=== PATIENT | male | born 1980 | race Caucasian/White ===

== ENCOUNTER 2020-12-14 19:36 | Emergency (ER) | payer SELFPAY ==
[~2020-12-14] VITALS: Ht 182.9 cm; Wt 83.9 kg
[~2020-12-14 19:36] MED LIST: AZIT250 PO; Bactrim Ds Tab1 EACH PO; CEPH500 PO; HYDACE10B PO; HYDACE5 PO; HYDGUAL120 PO
[2020-12-14 20:35] LABS: BASOPHILS ABSOLUTE AUTO 0.04 K/mm3 (0.00-0.23); BASOPHILS PERCENT AUTO 0 % (0-2); EOSINOPHILS ABSOLUTE AUTO 0.15 K/mm3 (0.00-0.68); EOSINOPHILS PERCENT AUTO 2 % (0-6); Hematocrit 45.9 % (37.0-53.0); Hemoglobin 14.8 g/dL (13.5-17.5); IMMATURE GRAN ABSOLUTE AUTO 0.02 K/mm3 (0.00-0.10); IMMATURE GRAN PERCENT AUTO 0 % (0-1); LYMPHOCYTES ABSOLUTE AUTO 2.78 K/mm3 (0.84-5.20); LYMPHOCYTES PERCENT AUTO 30 % (21-46); MONOCYTES ABSOLUTE AUTO 0.93 K/mm3 (0.16-1.47); MONOCYTES PERCENT AUTO 10 % (4-13); Mean Corpuscular HGB 29.4 pg (26.0-34.0); Mean Corpuscular HGB Conc 32.2 g/dL (31.5-36.5); Mean Corpuscular Volume 91 fL (80-100); Mean Platelet Volume 10.7 fL (9.1-12.4); NEUTROPHILS ABSOLUTE AUTO 5.27 K/mm3 (1.96-9.15); NEUTROPHILS PERCENT AUTO 57 % (41-73); Platelet Count 243 K/mm3 (150-400); RDW Coefficient Variation 14.6 % (11.7-14.2); RDW Standard Deviation 47.9 fL (35.1-46.3); Red Blood Cell Count 5.03 M/mm3 (4.30-5.90); White Blood Cell Count 9.19 K/mm3 (4.00-11.30)
[2020-12-14 20:58] LABS: Albumin, Blood 3.2 g/dL (3.4-5.0); Albumin/Globulin Ratio 0.8 (0.8-1.8); Bilirubin, Total 0.6 mg/dL (0.1-1.0); Bun/Creatinine Ratio 9.8 (12.0-20.0); Calcium, Blood 8.6 mg/dL (8.5-10.1); Creatinine, Blood 1.43 mg/dL (0.60-1.20); Globulin, Blood 3.9 g/dL (2.2-4.0); Potassium, Blood 4.1 mmol/L (3.5-5.5); Total Protein, Blood 7.1 g/dL (6.4-8.2)
[2020-12-14] MEDS ORDERED: CEPH500 PO (21:06)
== END 2020-12-14 22:25 | disposition home or self-care (01) ==
LOC: ER 19:36
PROVIDERS: Physician Assistant
DX: L03.116 Cellulitis of left lower limb (principal)
CPT/HCPCS: 36415; 80053; 83605; 85025; 99283; A9270

== ENCOUNTER 2021-07-20 19:31 | Emergency (ER) | payer OTHER ==
[~2021-07-20] VITALS: Ht 182.9 cm; Wt 83.9 kg
[2021-07-20] MEDS ORDERED: CEPH500 PO (22:13)
[2021-07-20] MEDS ORDERED: SULTRIDS PO (22:13)
== END 2021-07-20 22:25 | disposition home or self-care (01) ==
LOC: ER 19:31
DX: L03.116 Cellulitis of left lower limb (principal); F17.200 Nicotine dependence, unspecified, uncomplicated
CPT/HCPCS: 87070; 87077; 87185; 87186; 87205; 93971; 99284-25; A9270

== ENCOUNTER 2021-09-03 22:44 | Emergency (ER) | payer OTHER ==
[~2021-09-03] VITALS: Ht 182.9 cm; Wt 83.9 kg
[~2021-09-03 22:44] MED LIST changes: +SULTRIDS PO
[2021-09-03] MEDS ORDERED: Mupirocin22 GM TOP (23:14)
== END 2021-09-03 23:25 | disposition home or self-care (01) ==
LOC: ER 22:44
DX: L97.919 Non-pressure chronic ulcer of unspecified part of right lower leg with unspecified severity (principal); L97.921 Non-pressure chronic ulcer of unspecified part of left lower leg limited to breakdown of skin; Z79.899 Other long term (current) drug therapy; F17.210 Nicotine dependence, cigarettes, uncomplicated
CPT/HCPCS: 99283; A9270

== ENCOUNTER 2021-10-07 22:56 | Emergency (ER) | payer OTHER ==
[~2021-10-07] VITALS: Ht 182.9 cm; Wt 83.9 kg
[~2021-10-07 22:56] MED LIST changes: +Mupirocin22 GM TOP
[2021-10-08] MEDS ORDERED: Keflex500 MG PO (00:17)
== END 2021-10-08 00:42 | disposition home or self-care (01) ==
LOC: ER 22:56
DX: L03.116 Cellulitis of left lower limb (principal); L03.115 Cellulitis of right lower limb; F17.210 Nicotine dependence, cigarettes, uncomplicated
CPT/HCPCS: 99283

== ENCOUNTER 2021-10-22 11:50 | Emergency (ER) | payer OTHER ==
[~2021-10-22] VITALS: Ht 182.9 cm; Wt 90.7 kg
[~2021-10-22 11:50] MED LIST changes: +Keflex500 MG PO
[2021-10-22 12:32] LABS: BASOPHILS ABSOLUTE AUTO 0.02 K/mm3 (0.00-0.23); BASOPHILS PERCENT AUTO 0 % (0-2); EOSINOPHILS ABSOLUTE AUTO 0.02 K/mm3 (0.00-0.68); EOSINOPHILS PERCENT AUTO 0 % (0-6); Hematocrit 49.9 % (37.0-53.0); IMMATURE GRAN ABSOLUTE AUTO 0.02 K/mm3 (0.00-0.10); IMMATURE GRAN PERCENT AUTO 0 % (0-1); LYMPHOCYTES ABSOLUTE AUTO 1.76 K/mm3 (0.84-5.20); LYMPHOCYTES PERCENT AUTO 22 % (21-46); MONOCYTES ABSOLUTE AUTO 0.63 K/mm3 (0.16-1.47); MONOCYTES PERCENT AUTO 8 % (4-13); Mean Corpuscular HGB 30.5 pg (26.0-34.0); Mean Corpuscular HGB Conc 32.1 g/dL (31.5-36.5); Mean Corpuscular Volume 95 fL (80-100); Mean Platelet Volume 10.7 fL (9.1-12.4); NEUTROPHILS ABSOLUTE AUTO 5.62 K/mm3 (1.96-9.15); NEUTROPHILS PERCENT AUTO 70 % (41-73); Platelet Count 230 K/mm3 (150-400); RDW Coefficient Variation 14.6 % (11.7-14.2); Red Blood Cell Count 5.25 M/mm3 (4.30-5.90); White Blood Cell Count 8.07 K/mm3 (4.00-11.30)
[2021-10-22 12:54] LABS: Alanine Aminotransfer (ALT/SGP 53 U/L (12-78); Albumin, Blood 3.2 g/dL (3.4-5.0); Albumin/Globulin Ratio 0.8 (0.8-1.8); Alk Phos 160 U/L (50-136); Anion Gap 5 mmol/L (6-16); Aspartate Aminotrans (AST/SGOT 61 U/L (12-37); Blood Urea Nitrogen 18 mg/dL (8-24); Bun/Creatinine Ratio 15.9 (12.0-20.0); CO2, Blood 29 mmol/L (21-32); Calcium, Blood 8.9 mg/dL (8.5-10.1); Chloride, Blood 105 mmol/L (98-108); Creatinine, Blood 1.13 mg/dL (0.60-1.20); Globulin, Blood 4.1 g/dL (2.2-4.0); Glomerular Filtration Rate >60 (60-); Glucose, Blood 131 mg/dL (70-99); Potassium, Blood 4.5 mmol/L (3.5-5.5); Sodium, Blood 139 mmol/L (136-145); Total Protein, Blood 7.3 g/dL (6.4-8.2)
[2021-10-22] MEDS ORDERED: CEPH500 PO (14:39)
[2021-10-22] MEDS ORDERED: SULTRIDS PO (14:51)
== END 2021-10-22 15:05 | disposition home or self-care (01) ==
LOC: ER 11:50
PROVIDERS: Physician Assistant
DX: I87.2 Venous insufficiency (chronic) (peripheral) (principal); L03.116 Cellulitis of left lower limb; L03.115 Cellulitis of right lower limb; F17.210 Nicotine dependence, cigarettes, uncomplicated
CPT/HCPCS: 36415; 80053; 85025; 93971; 99284-25; A9270

== ENCOUNTER 2021-10-28 10:48 | Emergency (ER) | payer OTHER ==
[~2021-10-28] VITALS: Ht 182.9 cm; Wt 88.5 kg
[2021-10-28 11:39] LABS: BASOPHILS ABSOLUTE AUTO 0.04 K/mm3 (0.00-0.23); BASOPHILS PERCENT AUTO 1 % (0-2); EOSINOPHILS ABSOLUTE AUTO 0.04 K/mm3 (0.00-0.68); EOSINOPHILS PERCENT AUTO 1 % (0-6); Hematocrit 50.7 % (37.0-53.0); Hemoglobin 16.3 g/dL (13.5-17.5); IMMATURE GRAN ABSOLUTE AUTO 0.02 K/mm3 (0.00-0.10); IMMATURE GRAN PERCENT AUTO 0 % (0-1); LYMPHOCYTES PERCENT AUTO 27 % (21-46); MONOCYTES ABSOLUTE AUTO 0.52 K/mm3 (0.16-1.47); MONOCYTES PERCENT AUTO 7 % (4-13); Mean Corpuscular HGB Conc 32.1 g/dL (31.5-36.5); Mean Corpuscular Volume 93 fL (80-100); Mean Platelet Volume 10.8 fL (9.1-12.4); NEUTROPHILS PERCENT AUTO 64 % (41-73); Platelet Count 233 K/mm3 (150-400); RDW Coefficient Variation 14.8 % (11.7-14.2); RDW Standard Deviation 50.9 fL (35.1-46.3); Red Blood Cell Count 5.44 M/mm3 (4.30-5.90); White Blood Cell Count 7.02 K/mm3 (4.00-11.30)
[2021-10-28 12:06] LABS: Alanine Aminotransfer (ALT/SGP 51 U/L (12-78); Albumin, Blood 2.9 g/dL (3.4-5.0); Albumin/Globulin Ratio 0.7 (0.8-1.8); Alk Phos 149 U/L (50-136); Anion Gap 5 mmol/L (6-16); Aspartate Aminotrans (AST/SGOT 61 U/L (12-37); Blood Urea Nitrogen 19 mg/dL (8-24); Bun/Creatinine Ratio 15.7 (12.0-20.0); CO2, Blood 26 mmol/L (21-32); Calcium, Blood 8.9 mg/dL (8.5-10.1); Chloride, Blood 107 mmol/L (98-108); Creatinine, Blood 1.21 mg/dL (0.60-1.20); Globulin, Blood 4.3 g/dL (2.2-4.0); Glomerular Filtration Rate >60 (60-); Glucose, Blood 142 mg/dL (70-99); Potassium, Blood 4.5 mmol/L (3.5-5.5); Sodium, Blood 138 mmol/L (136-145); Total Protein, Blood 7.2 g/dL (6.4-8.2)
== END 2021-10-28 15:39 | disposition home or self-care (01) ==
LOC: ER 10:48
PROVIDERS: Emergency Medicine
DX: L27.1 Localized skin eruption due to drugs and medicaments taken internally (principal); T36.8X5A Adverse effect of other systemic antibiotics, initial encounter; F17.210 Nicotine dependence, cigarettes, uncomplicated; F15.10 Other stimulant abuse, uncomplicated; L30.9 Dermatitis, unspecified; R79.89 Other specified abnormal findings of blood chemistry
CPT/HCPCS: 36415; 80053; 83880; 85025; 93005; 93010; 96374; 99283-25; A9270; J1100

== ENCOUNTER 2021-11-06 20:20 | Inpatient (IN) | payer OTHER ==
[~2021-11-06] VITALS: Ht 182.9 cm; Wt 96.0 kg
[2021-11-06 21:30] LABS: BASOPHILS ABSOLUTE AUTO 0.03 K/mm3 (0.00-0.23); BASOPHILS PERCENT AUTO 0 % (0-2); EOSINOPHILS ABSOLUTE AUTO 0.11 K/mm3 (0.00-0.68); EOSINOPHILS PERCENT AUTO 1 % (0-6); Hemoglobin 15.4 g/dL (13.5-17.5); IMMATURE GRAN ABSOLUTE AUTO 0.03 K/mm3 (0.00-0.10); IMMATURE GRAN PERCENT AUTO 0 % (0-1); LYMPHOCYTES ABSOLUTE AUTO 1.82 K/mm3 (0.84-5.20); LYMPHOCYTES PERCENT AUTO 21 % (21-46); MONOCYTES ABSOLUTE AUTO 0.89 K/mm3 (0.16-1.47); MONOCYTES PERCENT AUTO 10 % (4-13); Mean Corpuscular HGB 30.3 pg (26.0-34.0); Mean Corpuscular HGB Conc 32.8 g/dL (31.5-36.5); Mean Corpuscular Volume 93 fL (80-100); Mean Platelet Volume 10.4 fL (9.1-12.4); NEUTROPHILS PERCENT AUTO 67 % (41-73); Platelet Count 241 K/mm3 (150-400); RDW Coefficient Variation 14.7 % (11.7-14.2); RDW Standard Deviation 50.2 fL (35.1-46.3); Red Blood Cell Count 5.08 M/mm3 (4.30-5.90); White Blood Cell Count 8.68 K/mm3 (4.00-11.30)
[2021-11-06 21:49] LABS: Alanine Aminotransfer (ALT/SGP 50 U/L (12-78); Albumin, Blood 2.9 g/dL (3.4-5.0); Albumin/Globulin Ratio 0.7 (0.8-1.8); Alk Phos 163 U/L (50-136); Anion Gap 6 mmol/L (6-16); Aspartate Aminotrans (AST/SGOT 55 U/L (12-37); Bilirubin, Total 0.7 mg/dL (0.1-1.0); Blood Urea Nitrogen 20 mg/dL (8-24); Bun/Creatinine Ratio 17.7 (12.0-20.0); CO2, Blood 24 mmol/L (21-32); Calcium, Blood 8.8 mg/dL (8.5-10.1); Chloride, Blood 109 mmol/L (98-108); Creatinine, Blood 1.13 mg/dL (0.60-1.20); Globulin, Blood 3.9 g/dL (2.2-4.0); Glomerular Filtration Rate >60 (60-); Glucose, Blood 98 mg/dL (70-99); Potassium, Blood 4.7 mmol/L (3.5-5.5); Sodium, Blood 139 mmol/L (136-145); Total Protein, Blood 6.8 g/dL (6.4-8.2)
--- NOTE | 2021-11-07 03:50 | NUR ---
Assumed care of pt at 0211 as an ER admit. A/Ox4, very cantankerous and demanding. Pt was NPO and states "If I don't get water I'm going to get the fuck out of here right now". Educated patient for the reasoning. Patient persisted and physician contacted and diet changed to cardiac. BLE redness from toes to about 4inches above the knee. Scattered scabs/open wounds t/o with the worse of it on dorsum of L calf. Patient reports 10/10 pain, but with no movement is able to fall asleep. Patient is diuresing well, and using urinal at bedside. Maintaining 90-93% on 2L NC, without it he desats into mid 80's. LS clear on top and crackles at bases. SBP 150's, DBP 110's. Afebrile. No cp/pressure. Wounds cleaned with wound silver cleaner and covered with nonadherent and kerlix as patient couldnt put his legs down as it hurt from the open wounds. Patients face has diffuse redness with purple/black at the nose and extending onto part of the cheeks. Purple/black also noted at ears, toes, and fingertips. Will update as changes occur Patient is now sleeping and instructed to use call light.
[2021-11-07 05:31] LABS: BASOPHILS ABSOLUTE AUTO 0.04 K/mm3 (0.00-0.23); BASOPHILS PERCENT AUTO 0 % (0-2); EOSINOPHILS PERCENT AUTO 1 % (0-6); Hematocrit 46.5 % (37.0-53.0); Hemoglobin 15.3 g/dL (13.5-17.5); IMMATURE GRAN ABSOLUTE AUTO 0.04 K/mm3 (0.00-0.10); IMMATURE GRAN PERCENT AUTO 0 % (0-1); LYMPHOCYTES PERCENT AUTO 15 % (21-46); MONOCYTES ABSOLUTE AUTO 1.06 K/mm3 (0.16-1.47); MONOCYTES PERCENT AUTO 10 % (4-13); Mean Corpuscular HGB 30.7 pg (26.0-34.0); Mean Corpuscular HGB Conc 32.9 g/dL (31.5-36.5); Mean Corpuscular Volume 93 fL (80-100); Mean Platelet Volume 10.8 fL (9.1-12.4); NEUTROPHILS PERCENT AUTO 73 % (41-73); Platelet Count 229 K/mm3 (150-400); RDW Coefficient Variation 14.7 % (11.7-14.2); RDW Standard Deviation 50.6 fL (35.1-46.3); Red Blood Cell Count 4.99 M/mm3 (4.30-5.90); White Blood Cell Count 10.24 K/mm3 (4.00-11.30)
[2021-11-07 06:10] LABS: Alanine Aminotransfer (ALT/SGP 52 U/L (12-78); Albumin, Blood 3.2 g/dL (3.4-5.0); Albumin/Globulin Ratio 0.8 (0.8-1.8); Alk Phos 159 U/L (50-136); Anion Gap 5 mmol/L (6-16); Aspartate Aminotrans (AST/SGOT 60 U/L (12-37); Bilirubin, Total 0.9 mg/dL (0.1-1.0); Blood Urea Nitrogen 19 mg/dL (8-24); Bun/Creatinine Ratio 16.4 (12.0-20.0); CO2, Blood 28 mmol/L (21-32); Calcium, Blood 8.9 mg/dL (8.5-10.1); Chloride, Blood 104 mmol/L (98-108); Creatinine, Blood 1.16 mg/dL (0.60-1.20); Globulin, Blood 4.1 g/dL (2.2-4.0); Glomerular Filtration Rate >60 (60-); Glucose, Blood 109 mg/dL (70-99); Potassium, Blood 4.5 mmol/L (3.5-5.5); Sodium, Blood 137 mmol/L (136-145); Total Protein, Blood 7.3 g/dL (6.4-8.2)
[2021-11-07 06:43] LABS: Creatine Kinase MB 15.8 ng/mL (0.0-3.6); Creatine Kinase MB Index 3.6 (0.0-4.0)
[2021-11-07 10:01] LABS: Source, Urine Clean Catch
[2021-11-07 10:05] LABS: Appearance, Urine Clear (Clear); Bilirubin, Urine Neg (Neg); Blood, Urine Neg (Neg); Color, Urine Yellow (P-Yellow); Glucose Qualitative, Urine Neg (Neg); Ketones, Urine Neg (Neg); Leukocyte Esterase, Urine Neg (Neg); Nitrite, Urine Neg (Neg); Protein, Urine Neg (Neg); Specific Gravity, Urine 1.015 (1.003-1.022); Urobilinogen, Urine NORM (Normal)
[2021-11-07 10:17] LABS: U Amphetamine Screen DETECTED; U Barbituate Screen Not Detected; U Benzodiazapine Screen Not Detected; U Buprenorphine Screen Not Detected; U Cannabinoids Screen DETECTED; U Cocaine Screen Not Detected; U Methadone Screen Not Detected; U Methamphetamine Screen DETECTED; U Opiates Screen Not Detected; U Oxycodone Screen Not Detected; U Phencyclidine Screen Not Detected; U Propoxyphene Screen Not Detected
--- NOTE | 2021-11-07 12:08 | NUR ---
PT BECAME AGITATED CURSING AND SCREAMING AT STAFF REFUSING MEDCIATIONS, PT PARANOID WITH DELUSIONS THAT PEOPLE ARE TELLING HIM THAT HE CAN GO HOME WITH ORAL MEDICATIONS, DR KAISER DID NOT TELL PT THAT HE COULD BE DISCHARGED WITH ORAL MEDCATIONS. PT'S FATHER ARRIVES TO ROOM AND IS ALSO VERBALLY AGGRESSIVE WITH STAFF, PT'S MOTHER THEN ARRIVES TO ROOM AND PT'S BEHAVIOR CONTINUES TO ESCILATE. PT DEMANDING TO LEAVE AMA, DRY CLEANING TEACHER TO ROOM PT AND BOTH PARENTS BECAME VERBALLY AGGRESSIVE WITH CHARGE NURSE, ADDITIONAL STAFF TO ROOM WHEN PT'S FATHER BEGAN LASHING OUT AT OTHER STAFF THROWING HANDS AT STAFF, SECURITY IS CALLED. FATHER ATTEMPTS TO DIVERT SECURITY FROM THE ROOM. PT SIGNED OUT AMA WITH DRY CLEANING TEACHER KING, RAUDEL REMOVED AND DRESSED. FAMILY AT DESK REQUESTING MEDICATIONS, FAMILY IS EDUCATED BY YARN TEXTURING MACHINE OPERATOR ABOUT OUTPT OPTIONS AFTER LEAVING AMA.
== END 2021-11-07 11:49 | disposition left against medical advice (07) | DRG 872 ==
LOC: ER 20:20 → PCU 11-07 00:35
PROVIDERS: Physician Assistant; ADMIT Internal Medicine
DX: A41.9 Sepsis, unspecified organism (principal); L03.115 Cellulitis of right lower limb; L03.116 Cellulitis of left lower limb; F15.10 Other stimulant abuse, uncomplicated; F17.210 Nicotine dependence, cigarettes, uncomplicated; Z88.2 Allergy status to sulfonamides
CPT/HCPCS: 36415; 71045; 71260; 73701; 80053; 81003; 82550; 82553; 83605; 83880; 84484; 85025; 85651; 86140; 87040; 93005; 93010; 93306; 96365; 96367; 96375; 99285-25; J0295; J0692; J1650; J1940; J3370; J7050; J7060; Q9967

== ENCOUNTER 2021-12-10 08:24 | Day surgery (SDC) | payer OTHER | END 2021-12-10 22:45 | disposition home or self-care (01) | LOC: WOUND 08:24 | DX: L97.822 Non-pressure chronic ulcer of other part of left lower leg with fat layer exposed (principal); L97.812 Non-pressure chronic ulcer of other part of right lower leg with fat layer exposed; I87.2 Venous insufficiency (chronic) (peripheral); I42.7 Cardiomyopathy due to drug and external agent; T43.62 Poisoning by, adverse effect of and underdosing of amphetamines; L03.116 Cellulitis of left lower limb; I73.9 Peripheral vascular disease, unspecified; I13.0 Hypertensive heart and chronic kidney disease with heart failure and stage 1 through stage 4 chronic kidney disease, or unspecified chronic kidney disease; N18.2 Chronic kidney disease, stage 2 (mild); I50.9 Heart failure, unspecified; Z88.2 Allergy status to sulfonamides | CPT/HCPCS: 99406; G0463 ==

== ENCOUNTER 2021-12-17 02:05 | Day surgery (SDC) | payer OTHER | END 2021-12-17 23:06 | disposition home or self-care (01) | LOC: WOUND 02:05 | DX: L97.822 Non-pressure chronic ulcer of other part of left lower leg with fat layer exposed (principal); L97.211 Non-pressure chronic ulcer of right calf limited to breakdown of skin; L03.116 Cellulitis of left lower limb; I87.2 Venous insufficiency (chronic) (peripheral); I73.9 Peripheral vascular disease, unspecified; I42.7 Cardiomyopathy due to drug and external agent; F17.210 Nicotine dependence, cigarettes, uncomplicated | CPT/HCPCS: 99406; G0463 ==

== ENCOUNTER 2021-12-24 01:04 | Day surgery (SDC) | payer OTHER | END 2021-12-24 23:19 | disposition home or self-care (01) | LOC: WOUND 01:04 | DX: L97.822 Non-pressure chronic ulcer of other part of left lower leg with fat layer exposed (principal); L97.211 Non-pressure chronic ulcer of right calf limited to breakdown of skin; I87.2 Venous insufficiency (chronic) (peripheral); L03.116 Cellulitis of left lower limb; F17.210 Nicotine dependence, cigarettes, uncomplicated; I42.9 Cardiomyopathy, unspecified; R77.0 Abnormality of albumin; I42.7 Cardiomyopathy due to drug and external agent | CPT/HCPCS: A9270; G0463 ==

== ENCOUNTER 2022-01-19 18:26 | Emergency (ER) | payer OTHER ==
[~2022-01-19] VITALS: Ht 182.9 cm; Wt 81.7 kg
== END 2022-01-19 20:57 | disposition home or self-care (01) ==
LOC: ER 18:26
DX: M79.89 Other specified soft tissue disorders (principal); L53.9 Erythematous condition, unspecified; M79.605 Pain in left leg; G89.29 Other chronic pain; F17.210 Nicotine dependence, cigarettes, uncomplicated; Z88.1 Allergy status to other antibiotic agents; Z88.2 Allergy status to sulfonamides
CPT/HCPCS: J1885

== ENCOUNTER 2023-04-30 04:45 | Emergency (ER) | payer OTHER ==
[~2023-04-30] VITALS: Ht 182.9 cm; Wt 81.7 kg
[2023-04-30] MEDS ORDERED: ACET500 PO (05:51)
[2023-04-30] MEDS ORDERED: Cleocin HCl150 MG PO (05:51)
[2023-04-30] MEDS ORDERED: Ibuprofen600 MG PO (05:51)
[2023-04-30 06:18] VITALS: BP 118/86
== END 2023-04-30 06:20 | disposition home or self-care (01) ==
LOC: ER 04:45
DX: K04.7 Periapical abscess without sinus (principal); E86.0 Dehydration; F15.90 Other stimulant use, unspecified, uncomplicated; F17.210 Nicotine dependence, cigarettes, uncomplicated; K03.81 Cracked tooth
CPT/HCPCS: 96374; 96375; 99282-25; J1885; J7030

== ENCOUNTER 2023-11-20 17:22 | Emergency (ER) | payer OTHER ==
[~2023-11-20] VITALS: Ht 182.9 cm; Wt 79.4 kg
[~2023-11-20 17:22] MED LIST changes: +ACET500 PO; +BLOOD THINNER; +Cleocin HCl150 MG PO; +DOXY100 PO; +ENTRESTO 24 MG1 EACH; +Ibuprofen600 MG PO; +SOAANZ20 M3 PO; +compression stocking
[2023-11-20] MEDS ORDERED: NS 1,000 ML IV SCH (17:35)
[2023-11-20 18:16] LABS: Hematocrit 38.9 % (37.0-53.0); Mean Corpuscular HGB 29.7 pg (26.0-34.0); Mean Corpuscular HGB Conc 33.4 g/dL (31.5-36.5); Mean Corpuscular Volume 89 fL (80-100); Platelet Count 75 K/mm3 (150-400); RDW Coefficient Variation 18.7 % (11.7-14.2); RDW Standard Deviation 59.2 fL (35.1-46.3); Red Blood Cell Count 4.37 M/mm3 (4.30-5.90); White Blood Cell Count 6.02 K/mm3 (4.00-11.30)
[2023-11-20 18:29] LABS: Albumin, Blood 3.4 g/dL (3.4-5.0); Albumin/Globulin Ratio 0.6 (0.8-1.8); Bilirubin, Total 1.2 mg/dL (0.1-1.0); Calcium, Blood 9.8 mg/dL (8.5-10.1); Creatinine, Blood 1.62 mg/dL (0.60-1.20); Globulin, Blood 5.5 g/dL (2.2-4.0); Potassium, Blood 5.3 mmol/L (3.5-5.5); Total Protein, Blood 8.9 g/dL (6.4-8.2)
[2023-11-20 18:48] LABS: BASOPHILS PERCENT MAN 0 % (0-2); EOSINOPHILS PERCENT MAN 0 % (0-6); LYMPHOCYTES PERCENT MAN 30 % (21-46); MONOCYTES ABSOLUTE MAN 0.18 K/mm3 (0.16-1.47); MONOCYTES PERCENT MAN 3 % (4-13); NEUTROPHILS ABSOLUTE MAN 4.03 K/mm3 (1.96-9.15); SEG NEUTROPHILS PERCENT MAN 67 % (41-73); TOTAL CELLS COUNTED 100
[2023-11-20 20:02] LABS: Source, Urine Clean Catch
[2023-11-20 20:06] LABS: Appearance, Urine Clear (Clear); Bilirubin, Urine Neg (Neg); Blood, Urine Neg (Neg); Color, Urine Yellow (P-Yellow); Glucose Qualitative, Urine Neg (Neg); Ketones, Urine Neg (Neg); Leukocyte Esterase, Urine 1+ (Neg); Nitrite, Urine Neg (Neg); Protein, Urine Neg (Neg); Specific Gravity, Urine 1.015 (1.003-1.022); Urobilinogen, Urine NORM (Normal)
[2023-11-20 20:41] LABS: Bacteria Few /hpf; Red Blood Cells, Urine 0-2 /hpf (0-2); Squamous Epithelial Cells Few /hpf (Few); White Blood Cells, Urine 0-2 /hpf (0-5)
[2023-11-20 21:15] VITALS: BP 86/75
== END 2023-11-20 22:12 | disposition home or self-care (01) ==
LOC: ER 17:22
PROVIDERS: Emergency Medicine; Physician Assistant
DX: R74.02 Elevation of levels of lactic acid dehydrogenase [LDH] (principal); I42.9 Cardiomyopathy, unspecified; Z88.2 Allergy status to sulfonamides; Z88.1 Allergy status to other antibiotic agents; Z79.899 Other long term (current) drug therapy; F17.210 Nicotine dependence, cigarettes, uncomplicated
CPT/HCPCS: 36415; 71046; 80053; 81001; 83605; 83880; 84443; 84484; 85025; 87086; 99283-25; J7030

== ENCOUNTER → 2024-06-23 | Outpatient (CLI) | payer OTHER | LOC: LAB SHORT 12:35 → LAB 12:35 | DX: S81.802A Unspecified open wound, left lower leg, initial encounter (principal) | CPT/HCPCS: 87070; 87075; 87077; 87147; 87186; 87205 ==

== ENCOUNTER 2024-09-03 11:26 | Inpatient (IN) | payer OTHER ==
[~2024-09-03] VITALS: Ht 182.9 cm; Wt 74.7 kg
[2024-09-03] VITALS (16 sets, daily range): BP systolic 75–104; BP diastolic 56–71
[2024-09-03] MEDS ORDERED: Magnesium Sulf 2 GM/Water 50ML 50 ML IV ONE (11:45)
[2024-09-03 12:16] LABS: Hematocrit 38.7 % (37.0-53.0); Hemoglobin 11.9 g/dL (13.5-17.5); Mean Corpuscular HGB Conc 30.7 g/dL (31.5-36.5); Mean Corpuscular Volume 78 fL (80-100); NRBC ABSOLUTE 0.11 K/mm3 (0.00-0.02); NRBC Auto 0.2 /100 WBC (0.0-0.2); Platelet Count 295 K/mm3 (150-400); RDW Coefficient Variation 23.1 % (11.7-14.2); RDW Standard Deviation 63.6 fL (35.1-46.3); Red Blood Cell Count 4.96 M/mm3 (4.30-5.90); White Blood Cell Count 47.27 K/mm3 (4.00-11.30)
[2024-09-03] MEDS ORDERED: XARELTO20 MG PO (12:23)
[2024-09-03 12:32] LABS: BAND PERCENT MAN 26 % (0-8); BASOPHILS PERCENT MAN 0 % (0-2); EOSINOPHILS PERCENT MAN 0 % (0-6); LYMPHOCYTES ABSOLUTE MAN 0.94 K/mm3 (0.84-5.20); LYMPHOCYTES PERCENT MAN 2 % (21-46); METAMYELOCYTE ABSOLUTE MAN 0.47 K/mm3 (0.00-0.00); METAMYELOCYTE PERCENT MAN 1 % (0-0); MONOCYTES ABSOLUTE MAN 0.47 K/mm3 (0.16-1.47); MONOCYTES PERCENT MAN 1 % (4-13); NEUTROPHILS ABSOLUTE MAN 45.37 K/mm3 (1.96-9.15); SEG NEUTROPHILS PERCENT MAN 70 % (41-73); TOTAL CELLS COUNTED 100
[2024-09-03 12:47] LABS: Albumin, Blood 2.4 g/dL (3.4-5.0); Albumin/Globulin Ratio 0.4 (0.8-1.8); Bun/Creatinine Ratio 20.6 (12.0-20.0); Calcium, Blood 8.9 mg/dL (8.5-10.1); Creatinine, Blood 2.38 mg/dL (0.60-1.20); Globulin, Blood 5.4 g/dL (2.2-4.0); Potassium, Blood 6.4 mmol/L (3.5-5.5); Total Protein, Blood 7.8 g/dL (6.4-8.2)
[2024-09-03] MEDS ORDERED: Ampicillin Sod/Sulbactam Sod 3 GM in NS 100 ML IV ONE (12:55)
[2024-09-03] MEDS ORDERED: Dextrose 50% 50 ML Syringe IV ONE (12:55)
[2024-09-03] MEDS ORDERED: NS 1,000 ML IV SCH (12:55)
[2024-09-03] MEDS ORDERED: Insulin Regular 100 Unit/ML 1ML Dose IV ONE (12:55)
[2024-09-03] MEDS ORDERED: Dextrose 50% 50 ML Vial IV ONE (13:00)
[2024-09-03] MEDS ORDERED: FLU VACC TS2024-25(6MOS UP)/PF 45 MCG/0.5 ML SYRINGE IM ONE (14:10)
[2024-09-03] MEDS ORDERED: CALCIUM GLUC IN NACL, ISO-OSM 100 ML IV ONE (14:10)
[2024-09-03 14:22] LABS: Source, Urine Clean Catch
[2024-09-03 14:25] LABS: Appearance, Urine Hazy (Clear); Blood, Urine 4+ (Neg); Color, Urine Amber (P-Yellow); Glucose Qualitative, Urine Neg (Neg); Ketones, Urine Neg (Neg); Leukocyte Esterase, Urine 3+ (Neg); Nitrite, Urine Neg (Neg); Protein, Urine 2+ (Neg); Urobilinogen, Urine 1+ (Normal)
[2024-09-03 14:31] LABS: Bilirubin, Urine 1+ (Neg)
[2024-09-03 14:33] LABS: Spermatozoa Few /hpf
[2024-09-03 14:34] LABS: Bacteria Many /hpf; Squamous Epithelial Cells Few /hpf (Few); Transitional Epithelial Cells Rare /hpf (0-Rare)
[2024-09-03 14:38] LABS: U Amphetamine Screen DETECTED; U Barbituate Screen Not Detected; U Benzodiazapine Screen Not Detected; U Buprenorphine Screen Not Detected; U Cannabinoids Screen DETECTED; U Cocaine Screen Not Detected; U Methadone Screen DETECTED; U Methamphetamine Screen DETECTED; U Opiates Screen Not Detected; U Oxycodone Screen DETECTED; U Phencyclidine Screen Not Detected
[2024-09-03 14:44] LABS: PCO2 Arterial 26.7 mmHg (35-45); PO2 Arterial 74.9 mmHg (80-100); pH Blood Arterial 7.44 (7.35-7.45)
[2024-09-03] MEDS ORDERED: Vancomycin HCL 1,750 MG in NS 500 ML IV ONE (14:50)
[2024-09-03 16:41] LABS: International Normalized Ratio 2.3; Prothrombin Time Results 23.1 Sec (9.7-11.5)
[2024-09-03 16:43] LABS: Anti-Xa UFH, PHA Monitoring 1.17 IU/mL
[2024-09-03 17:08] LABS: Bun/Creatinine Ratio 23.8 (12.0-20.0); Calcium, Blood 11.9 mg/dL (8.5-10.1); Creatinine, Blood 1.93 mg/dL (0.60-1.20)
[2024-09-03] MEDS ORDERED: Piperacillin/Tazobactam Sod 3.375 GM in NS 100 ML IV SCH (18:00)
--- NOTE | 2024-09-03 18:33 | NUR ---
THIS RN ASSUMED CARE OF PT AT 1730. PT WAS ALERT AND ORIENTED X3, PT CONFUSED ABOUT THE DATE. PT WAS REALLY WANTING TO DRINK WATER, THIS RN EDUCATED PT ON FLUID RESTRICTION DUE TO ENLARGED HEART AND WANTED TO KEEP FLUIDS TO A MINIMUM. PT HEART RATE IS IN THE 110s AND BLOOD PRESSURE IS 81/71 MAP OF 76, PT DENIES CHEST PAIN. PT IS ON NC 4L SATTING >95% AND PT DENIES SHORTNESS OF BREATH, PT CLEAR/DIMINISHED. PT HAS VERY MOTTLED/PURPLE SKIN COLOR ON BLE AND BUE. PULSES WERE OBTAINED IN THE UPPER EXTREMITIED VIA DOPPLER AND THE LOWER RIGHT PEDAL PULSE WAS ALSO OBTAINED VIA DOPPLER. THIS RN, SANDEEP LOVELL RN AND TATY RN WERE NOT ABLE TO GET PEDAL PULSE IN LEFT LOWER EXTREMITIY. WAS NOTIFIED AND ORDERED A VENOUS DOPPLER ULTRASOUND OF BLE. PROVIDER SAID TO KEEP PT COMFORTBALE THROUGHOUT THE NIGHT, LIMIT FLUIDS MUCH POSSIBLE DUE TO CHF EXACERBATION. NO OTHER INTERVENTIONS AT THIS TIME. PLAN OF CARE CONTINUED.
[2024-09-04] VITALS (82 sets, daily range): BP systolic 66–112; BP diastolic 43–95
[2024-09-04] MEDS ORDERED: Vancomycin HCL 750 MG in NS 250 ML IV SCH (03:00)
[2024-09-04 03:41] LABS: Hematocrit 35.3 % (37.0-53.0); Hemoglobin 11.1 g/dL (13.5-17.5); Mean Corpuscular HGB Conc 31.4 g/dL (31.5-36.5); Mean Corpuscular Volume 76 fL (80-100); Mean Platelet Volume 10.2 fL (9.1-12.4); Platelet Count 275 K/mm3 (150-400); RDW Coefficient Variation 22.5 % (11.7-14.2); RDW Standard Deviation 59.7 fL (35.1-46.3); Red Blood Cell Count 4.62 M/mm3 (4.30-5.90); White Blood Cell Count 41.63 K/mm3 (4.00-11.30)
[2024-09-04 04:07] LABS: BAND PERCENT MAN 37 % (0-8); BASOPHILS PERCENT MAN 0 % (0-2); EOSINOPHILS PERCENT MAN 0 % (0-6); LYMPHOCYTES ABSOLUTE MAN 1.24 K/mm3 (0.84-5.20); LYMPHOCYTES PERCENT MAN 3 % (21-46); METAMYELOCYTE ABSOLUTE MAN 0.41 K/mm3 (0.00-0.00); METAMYELOCYTE PERCENT MAN 1 % (0-0); MONOCYTES ABSOLUTE MAN 0.41 K/mm3 (0.16-1.47); MONOCYTES PERCENT MAN 1 % (4-13); NEUTROPHILS ABSOLUTE MAN 39.54 K/mm3 (1.96-9.15); SEG NEUTROPHILS PERCENT MAN 58 % (41-73); TOTAL CELLS COUNTED 100
[2024-09-04 04:40] LABS: Albumin, Blood 1.9 g/dL (3.4-5.0); Albumin/Globulin Ratio 0.5 (0.8-1.8); Bilirubin, Total 1.7 mg/dL (0.1-1.0); Bun/Creatinine Ratio 26.2 (12.0-20.0); Creatinine, Blood 1.68 mg/dL (0.60-1.20); Globulin, Blood 4.2 g/dL (2.2-4.0); Total Protein, Blood 6.1 g/dL (6.4-8.2)
[2024-09-04 04:42] LABS: Calcium, Blood 8.4 mg/dL (8.5-10.1)
[2024-09-04] MEDS ORDERED: Heparin Sodium 5000 Units/ML 1ML MDV SC SCH (09:00)
[2024-09-04] MEDS ORDERED: Midodrine 5 MG Tab PO SCH (09:00)
--- NOTE | 2024-09-04 09:00 | NUR ---
ASSUMED CARE OF PATIENT PT ALERT AND ORIENTED TO SELF, PLACE, SITATION, AND YEAR. UNABLE TO STATE MONTH. PATIENT STATING HE WANTS TO LEAVE HOSPITAL, THIS RN AND DR. ROLDAN EDUCATED PATIENT ON SEVERITY OF DISEASE/RISKS OF LEAVING. PATIENT STATED ON PERIPHREAL LEVOPHED FOR SBP OF HIGH 70'S AND MAP OF MID 50'S. INFUSING THOUGH RIGHT UPPER ARM IV. SINUS TACH 100-110'S. DOPPLERABLE PULSES IN BUE AND RIGHT PEDAL PULSE. STILL UNABLE TO OBTAIN LEFT PEDAL PULSE VIA DOPPLER. PATIENT PLACED ON ROOM AIR FROM 2LNC, WITH O2 SATS > 98%. NO SOB. CLEAR/DIMINISHED LUNG SOUNDS. HAD 1 LOOSE BM. NO ACUTE COMPLAINTS OF PAIN AT THIS TIME.
[2024-09-04] MEDS ORDERED: Piperacillin/Tazobactam Sod 3.375 GM in NS 100 ML IV SCH (16:00)
[2024-09-04] MEDS ORDERED: Rivaroxaban 10 MG Tab PO SCH (18:00)
[2024-09-04 18:43] LABS: Vancomycin, Trough 14.8 ug/mL (5.0-10.0)
[2024-09-05] VITALS (78 sets, daily range): BP systolic 62–145; BP diastolic 27–131
[2024-09-05 00:02] LABS: Albumin, Blood 2.1 g/dL (3.4-5.0); Albumin/Globulin Ratio 0.5 (0.8-1.8); Bilirubin, Total 1.7 mg/dL (0.1-1.0); Bun/Creatinine Ratio 27.8 (12.0-20.0); Calcium, Blood 8.3 mg/dL (8.5-10.1); Creatinine, Blood 1.26 mg/dL (0.60-1.20); Globulin, Blood 4.4 g/dL (2.2-4.0); Magnesium, Blood 2.4 mg/dL (1.6-2.4); Phosphorus, Blood 2.5 mg/dL (2.5-4.9); Potassium, Blood 4.3 mmol/L (3.5-5.5); Total Protein, Blood 6.5 g/dL (6.4-8.2)
[2024-09-05 04:07] LABS: Hematocrit 33.4 % (37.0-53.0); Hemoglobin 10.5 g/dL (13.5-17.5); Mean Corpuscular HGB 23.7 pg (26.0-34.0); Mean Corpuscular HGB Conc 31.4 g/dL (31.5-36.5); Mean Corpuscular Volume 75 fL (80-100); Mean Platelet Volume 9.8 fL (9.1-12.4); NRBC ABSOLUTE 0.09 K/mm3 (0.00-0.02); NRBC Auto 0.5 /100 WBC (0.0-0.2); Platelet Count 202 K/mm3 (150-400); RDW Coefficient Variation 22.1 % (11.7-14.2); RDW Standard Deviation 59.3 fL (35.1-46.3); Red Blood Cell Count 4.43 M/mm3 (4.30-5.90); White Blood Cell Count 17.55 K/mm3 (4.00-11.30)
[2024-09-05 04:25] LABS: International Normalized Ratio 1.68; Prothrombin Time Results 17.3 Sec (9.7-11.5)
[2024-09-05 04:30] LABS: Albumin, Blood 2.1 g/dL (3.4-5.0); Albumin/Globulin Ratio 0.5 (0.8-1.8); Bilirubin, Total 1.9 mg/dL (0.1-1.0); Bun/Creatinine Ratio 27.5 (12.0-20.0); Calcium, Blood 8.2 mg/dL (8.5-10.1); Creatinine, Blood 1.2 mg/dL (0.60-1.20); Globulin, Blood 4.4 g/dL (2.2-4.0); Potassium, Blood 4.2 mmol/L (3.5-5.5); Total Protein, Blood 6.5 g/dL (6.4-8.2)
[2024-09-05 04:53] LABS: BAND PERCENT MAN 25 % (0-8); BASOPHILS PERCENT MAN 0 % (0-2); EOSINOPHILS PERCENT MAN 0 % (0-6); LYMPHOCYTES % ATYPICAL MANUAL 1 % (0-0); LYMPHOCYTES ABSOLUTE MAN 1.05 K/mm3 (0.84-5.20); LYMPHOCYTES PERCENT MAN 5 % (21-46); METAMYELOCYTE ABSOLUTE MAN 0.17 K/mm3 (0.00-0.00); METAMYELOCYTE PERCENT MAN 1 % (0-0); MONOCYTES ABSOLUTE MAN 0.35 K/mm3 (0.16-1.47); MONOCYTES PERCENT MAN 2 % (4-13); NEUTROPHILS ABSOLUTE MAN 15.97 K/mm3 (1.96-9.15); SEG NEUTROPHILS PERCENT MAN 66 % (41-73); TOTAL CELLS COUNTED 100
--- NOTE | 2024-09-05 05:25 | NUR ---
SHIFT SUMMARY A/OX4, RESPONDS AND CALLS APPROPRIATLY. 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 PT HAD 25MIN EPISODE OF SUSTAINED SVT. ATTEMPTED TO GET PT TO VAGAL BUT WAS UNSUCCESSFUL. PT WAS ASYMPTOMATIC. ON LEVO AT 4MCG/MIN R/T MAP GOAL OF 65. ON ROOM AIR, SATS >92%. MULTILE LOOSE STOOLS THIS SHIFT, SAMPLE SENT TO LAB FOR TESTING. TOLERATING PO INTAKE W/O N/V. TMAX 101.3, REMOVED BLANKETS AND PROVIDED COOL CLOTH, WHICH WAS SUCCESSFUL. CALL LIGHT IN REACH.
[2024-09-05 05:38] LABS: Campylobacter Sp Not Detected (NOT DETECT); Cryptosporidium Not Detected (NOT DETECT); Cyclospora Cayetanensis Not Detected (NOT DETECT); E. Coli O157 Not Detected (NOT DETECT); Entamoeba Histolytica Not Detected (NOT DETECT); Enteroaggregative E. coli-EAEC Not Detected (NOT DETECT); Enteropathogenic E. coli-EPEC Not Detected (NOT DETECT); Enterotoxigenic E. coli-ETEC Not Detected (NOT DETECT); Giardia Lamblia Not Detected (NOT DETECT); Plesiomonas Shigelloides Not Detected (NOT DETECT); Salmonella Sp Not Detected (NOT DETECT); Shiga Toxin-prod E. coli-STEC Not Detected (NOT DETECT); Shigella/Enteroin E. coli-EIEC Not Detected (NOT DETECT); Vibrio Cholerae Not Detected (NOT DETECT); Vibrio Sp Not Detected (NOT DETECT); Yersinia Enterocolitica Not Detected (NOT DETECT)
[2024-09-05 05:39] LABS: Adenovirus F 40/41 Not Detected (NOT DETECT); Astrovirus Not Detected (NOT DETECT); Norovirus GI/GII Not Detected (NOT DETECT); Rotavirus A Not Detected (NOT DETECT); Sapovirus Not Detected (NOT DETECT)
[2024-09-05 14:33] LABS: Vancomycin, Trough 16.7 ug/mL (5.0-10.0)
[2024-09-06] VITALS (36 sets, daily range): BP systolic 79–119; BP diastolic 59–83
[2024-09-06 03:27] LABS: Hematocrit 33.5 % (37.0-53.0); Hemoglobin 10.5 g/dL (13.5-17.5); Mean Corpuscular HGB 23.8 pg (26.0-34.0); Mean Corpuscular HGB Conc 31.3 g/dL (31.5-36.5); Mean Corpuscular Volume 76 fL (80-100); Mean Platelet Volume 9.9 fL (9.1-12.4); NRBC Auto 2.4 /100 WBC (0.0-0.2); Platelet Count 175 K/mm3 (150-400); RDW Coefficient Variation 22.3 % (11.7-14.2); RDW Standard Deviation 59.7 fL (35.1-46.3); Red Blood Cell Count 4.42 M/mm3 (4.30-5.90); White Blood Cell Count 12.59 K/mm3 (4.00-11.30)
[2024-09-06 03:45] LABS: Bun/Creatinine Ratio 28.6 (12.0-20.0); Calcium, Blood 8.3 mg/dL (8.5-10.1); Creatinine, Blood 1.19 mg/dL (0.60-1.20); Magnesium, Blood 2.7 mg/dL (1.6-2.4); Potassium, Blood 3.8 mmol/L (3.5-5.5)
--- NOTE | 2024-09-06 05:39 | NUR ---
SHIFT SUMMARY PT A/OX4, RESPONDS AND CALLS APPROPRIATLY. 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 AMIO STOPPED AT 0200. ON ROOM AIR, SATS >95%. PLACED ON 2L NC WHILE ASLEEP R/T TO DESAT IN THE 80'S. ONE BM THIS SHIFT. GOOD UOP NOTED. TOLERATING PO INTAKE. AFEBRILE. NO ACUTE EVENTS THIS SHIFT. CALL LIGHT IN REACH.
--- NOTE | 2024-09-06 09:20 | NUR ---
0715 ASSUMED CARE OF PATIENT. PT AWAKE ALERT ORIENTED X 4. PT AYERS, STRONG WITH TESTING IN BED. PT HAS CLEAR LUNGS ON ROOM AIR. 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 PT HAS POSITIVE BT ABD SOFT NONTENDER. PT HAS PPP X UPPER EXTREMETIES AND BILAT LE DOPPLER. LOWER EXTREM. ARE REDDISH/PURPLE BILAT UP TO KNEES BILAT. PT HAS PICC TO LEFT UPPER ARM ALL PORTS SALINED LOCKED AND WERE ABLE TO DRAW BLOOD BACK ALL THREE PORTS. PIV TO RIGHT ARM SL. PT HAS SINUS TACHYCARDIC WITH BP MAP ABOVE 60. OXYGENATIONS 100% ON ROOM AIR. NO COMPLAINT OF PAIN EXCEPT WHEN TOUCH HIS TOES ON BOTH FEET. PT EAGER TO START MOVING. PT / OT ORDERED FOR PT THIS AM. DR SANCHEZ SAW PT WELL.
[2024-09-06] MEDS ORDERED: Metoprolol Tartrate 1 MG/ML 5 ML VIAL IV ONE (16:25)
[2024-09-06] MEDS ORDERED: Ondansetron HCl 2 MG / ML 2ML Vial IV PRN (17:45)
[2024-09-06] MEDS ORDERED: Rivaroxaban 10 MG Tab PO SCH (18:00)
--- NOTE | 2024-09-06 18:33 | NUR ---
END OF SHIFT NOTE PT WAS ABLE TO GET UP OOB TODAY. HE USED A FRONT WHEEL WALKER TO THE CHAIR AND DID VERY WELL. NO DIZZINESS OR WOBBLING WHILE WALKING UPRIGHT. HE DID NOT LIKE STAYING IN THE CHAIR HOWEVER AND WAS UP ONLY FOR 4 HRS. HE HAS COMPLAINED OF BEING COLD ALL DAY EVEN WITH THE HEAT UP IN THE ROOM AND WARM BLANKETS APPLIED. THE HIGHEST HIS TEMP HAS GOTTEN IS 99.0 F. HE IS ALSO NOT WANTING TO EAT MUCH TODAY BUT DID TAKE HIS ENSURES FOR A COUPLE MEALS. HIS NOSE HAS BEEN CLOGGED UP AND HIS MOM BROUGHT IN SOME SALINE NARES FLUSH WHICH HELPED HIM TO BE ABLE TO START MOVING HIS NOSE CONGESTION. HE STILL REMAINS MULTICOLORED ON HIS FACE AND HANDS AND LEGS ALL RED/PINK HEW WITH PURPLE AT TIPS OF NOSE, FINGER TIPS AND TOES. HIS PULSE INCREASED THIS AFTERNOON SINCE HE HAS BEEN OFF ANY RATE CONTROL MEDICATION. IT WENT HIGH [address] SANCHEZ WAS CALLED AND HE ORDERD A METOPROLOL IV 5MG ONE TIME. IT HELPED FOR A SHORT TIME AND BROUGTH HIS RATE DOWN TO 125. HE WILL GET A PO DOSE TONIGHT, SEE EMAR. HE HAS VOIDED WELL ENOUGH TODAY USING THE URINAL HOWEVER IT IS QUITE ORANGE IN COLOR. HIS PICC LINE WAS REDRESSED TODAY. MOM AND DAD AND FRIEND ARRIVED TO VISIT HIM TODAY. WILL GIVE REPORT TO NEXT SHIFT TO RESUME CARE.
[2024-09-06] MEDS ORDERED: Metoprolol Tartrate 25 MG Tab PO SCH (21:00)
[2024-09-07] VITALS (16 sets, daily range): BP systolic 79–120; BP diastolic 55–98
[2024-09-07 04:27] LABS: BASOPHILS ABSOLUTE AUTO 0.08 K/mm3 (0.00-0.23); BASOPHILS PERCENT AUTO 0 % (0-2); EOSINOPHILS ABSOLUTE AUTO 0.03 K/mm3 (0.00-0.68); EOSINOPHILS PERCENT AUTO 0 % (0-6); Hematocrit 34.2 % (37.0-53.0); IMMATURE GRAN ABSOLUTE AUTO 0.23 K/mm3 (0.00-0.10); IMMATURE GRAN PERCENT AUTO 1 % (0-1); LYMPHOCYTES ABSOLUTE AUTO 1.46 K/mm3 (0.84-5.20); LYMPHOCYTES PERCENT AUTO 7 % (21-46); MONOCYTES PERCENT AUTO 6 % (4-13); Mean Corpuscular HGB 23.9 pg (26.0-34.0); Mean Corpuscular HGB Conc 32.2 g/dL (31.5-36.5); Mean Corpuscular Volume 74 fL (80-100); NEUTROPHILS ABSOLUTE AUTO 16.84 K/mm3 (1.96-9.15); NEUTROPHILS PERCENT AUTO 85 % (41-73); NRBC ABSOLUTE 0.25 K/mm3 (0.00-0.02); NRBC Auto 1.3 /100 WBC (0.0-0.2); Platelet Count 172 K/mm3 (150-400); RDW Standard Deviation 57.1 fL (35.1-46.3); White Blood Cell Count 19.84 K/mm3 (4.00-11.30)
[2024-09-07 04:35] LABS: Mean Platelet Volume 11.1 fL (9.1-12.4)
[2024-09-07 04:52] LABS: Albumin, Blood 2.2 g/dL (3.4-5.0); Albumin/Globulin Ratio 0.5 (0.8-1.8); Bilirubin, Total 3.8 mg/dL (0.1-1.0); Bun/Creatinine Ratio 23.6 (12.0-20.0); Calcium, Blood 8.2 mg/dL (8.5-10.1); Creatinine, Blood 1.65 mg/dL (0.60-1.20); Globulin, Blood 4.8 g/dL (2.2-4.0); Potassium, Blood 4.3 mmol/L (3.5-5.5)
--- NOTE | 2024-09-07 05:29 | NUR ---
SHIFT SUMMARY PT A/OX4, RESPONDS AND CALLS APPROPRAITLY. SOME INTERMITTENT ANXIETY NOTICED T/O SHIFT. STATES HE DOES HAVE ANXIETY BUT DOES NOT TAKE ANY RX AT HOME. HE HAS IN THE PAST BUT STATED HE DOES NOT LIKE HOW THEY NAKE HIM FEEL. DECLINED MY OFFER TO REQUEST PRNS FROM PROVIDER. HE HAS BEEN ON ROOM AIR MOST OF THIS SHIFT, WITH A FEW SHORT PERIODS OF SUPPLEMENTAL O2 R/T DESATTING. HE DENIES SOB T/O SHIFT. GAVE FIRST DOSE OF METOPROLOL PO AT 2100, HR HAS SUSTAINED 100-110'S, MAPS > 65. DENIES CP/PRESSURE. NO BM THIS SHIFT. HE HAS NOT VOIDED URINE FOR ME THIS SHIFT, ENCOURAGED TO TRY W/ URINAL BUT WAS UNSUCCESSFUL. BLADDER SCANNED- 202ML. LABS SHOW WORSENING KIDNEY FUNCTION. TOLERATING PO LIQUIDS, DECLINING FOOD. NO N/V. CALL LIGHT IN REACH.
[2024-09-07] MEDS ORDERED: NS 1,000 ML IV SCH (07:00)
--- NOTE | 2024-09-07 08:08 | NUR ---
ASSUMED CARE OF PATIENT AT APPROXIMATELY 0700. REPORT RECEIVED FROM GILMER JAMIL. PT ASLEEP IN BED DURING BEDSIDE REPORT. CONTINUOUS CARDIAC MONITORING SHOWS STACH, BP STABLE c MAP > GOAL OF 60. ON RA WITH O2 SATURATION > 92%. PICC TO CHARLIE, SALINE LOCKED. SEE SHIFT ASSESSMENT FOR FULL DETAILS.
[2024-09-07] MEDS ORDERED: NS 500 ML IV ONE (10:50)
[2024-09-07] MEDS ORDERED: Midodrine 5 MG Tab PO ONE (10:50)
[2024-09-07 14:51] LABS: Vancomycin, Trough 22.9 ug/mL (5.0-10.0)
--- NOTE | 2024-09-07 18:23 | NUR ---
SHIFT SUMMARY PT REMAINED ALERT AND ORIENTED X 4 T/O ENTIRETY OF SHIFT. ABLE TO FOLLOW COMMANDS, MAKE PURPOSEFUL MOVEMENTS, AND MAKE NEEDS KNOWN. AFEBRILE AND DENIES PAIN. SHOWERED THIS SHIFT WHILE WORKING WITH OT, ABLE TO AMBULATE WITH SBA/GAIT BELT. CONTINUOUS CARDIAC MONITORING IN PLACE SHOWS SR-STACH. AT APPROXIMATELY 1030 PT BECAME HYPOTENSIVE c MAPS RANGING FROM 46/54. ASYMPTOMATIC. 500mL BOLUS AND ADDITIONAL DOSE OF MIDODRINE 5MG GIVEN PER DR. SANCHEZ, SINCE THEN PT MAPS > GOAL OF 60. ON RA WITH O2 SATURATION > 92%. NO BM THIS SHIFT. DECREASED APPETITE. PROVIDED WITH MENU TO CHOOSE FOODS THAT SOUNDED BETTER TO HIM. DENIES NAUSEA. UTILIZES BEDSIDE URINAL. URINE SAMPLE NEEDED FOR LABS. BLE'S REMAIN PURPLE/DUSKY. BILATERAL HANDS WITH MODERATE EDEMA. ELEVATED ON PILLOWS. WILL CONTINUE TO MONITOR AND REPORT TO ONCOMING RN.
[2024-09-07 19:54] LABS: Source, Urine Clean Catch
--- NOTE | 2024-09-07 20:00 | NUR ---
ASSUMPTION OF CARE CARE OF PT ASSUMED AT 1900 FOLLOWING REPORT FROM DAY RN. PT LYING IN BED SLEEPING AWAKES TO VOICE AND IS ORIENTED TO ALL, THOUGH TALKS SOFTLY AND MOVES EXTREMITIES WITH DIFFICULTY. HR SINUS TACH AND STABLE TO SOFT BP, MAP 71. NS SALINE INFUSING AT 125ML/HR. SAT 98% ON RA. NO CHEST PAIN, SOB, AB PAIN, N/V, DIZZINESS. CALL LIGHT NEARBY.
[2024-09-07 20:03] LABS: Appearance, Urine Hazy (Clear); Blood, Urine Neg (Neg); Color, Urine Amber (P-Yellow); Glucose Qualitative, Urine Neg (Neg); Ketones, Urine Neg (Neg); Leukocyte Esterase, Urine 2+ (Neg); Nitrite, Urine Neg (Neg); Protein, Urine 2+ (Neg); Urobilinogen, Urine 1+ (Normal)
[2024-09-07 20:08] LABS: Bilirubin, Urine 2+ (Neg)
[2024-09-07 20:09] LABS: Amorphous Light (0-Heavy)
[2024-09-07 20:10] LABS: Bacteria Many /hpf; Red Blood Cells, Urine Not Seen /hpf (0-2); Renal Epithelial Rare /hpf (0-Rare); Squamous Epithelial Cells Few /hpf (Few); Transitional Epithelial Cells Few /hpf (0-Rare)
[2024-09-08] VITALS (14 sets, daily range): BP systolic 74–102; BP diastolic 52–70
[2024-09-08] MEDS ORDERED: Vancomycin HCL 500 MG in NS 250 ML IV SCH (03:00)
[2024-09-08 04:10] LABS: Hematocrit 33.9 % (37.0-53.0); Hemoglobin 10.4 g/dL (13.5-17.5); Mean Corpuscular HGB 23.6 pg (26.0-34.0); Mean Corpuscular HGB Conc 30.7 g/dL (31.5-36.5); Mean Corpuscular Volume 77 fL (80-100); NRBC ABSOLUTE 0.12 K/mm3 (0.00-0.02); NRBC Auto 0.6 /100 WBC (0.0-0.2); Platelet Count 183 K/mm3 (150-400); RDW Coefficient Variation 22.5 % (11.7-14.2); RDW Standard Deviation 60.4 fL (35.1-46.3); White Blood Cell Count 19.19 K/mm3 (4.00-11.30)
[2024-09-08 04:30] LABS: Albumin/Globulin Ratio 0.4 (0.8-1.8); Bun/Creatinine Ratio 21.6 (12.0-20.0); Calcium, Blood 8.3 mg/dL (8.5-10.1); Creatinine, Blood 2.5 mg/dL (0.60-1.20); Globulin, Blood 4.5 g/dL (2.2-4.0); Potassium, Blood 5.4 mmol/L (3.5-5.5); Total Protein, Blood 6.5 g/dL (6.4-8.2)
[2024-09-08 04:31] LABS: Mean Platelet Volume 11.6 fL (9.1-12.4)
[2024-09-08 04:46] LABS: BAND PERCENT MAN 9 % (0-8); BASOPHILS PERCENT MAN 0 % (0-2); EOSINOPHILS PERCENT MAN 0 % (0-6); LYMPHOCYTES % ATYPICAL MANUAL 1 % (0-0); LYMPHOCYTES ABSOLUTE MAN 1.91 K/mm3 (0.84-5.20); LYMPHOCYTES PERCENT MAN 9 % (21-46); METAMYELOCYTE ABSOLUTE MAN 0.19 K/mm3 (0.00-0.00); METAMYELOCYTE PERCENT MAN 1 % (0-0); MONOCYTES ABSOLUTE MAN 1.72 K/mm3 (0.16-1.47); MONOCYTES PERCENT MAN 9 % (4-13); NEUTROPHILS ABSOLUTE MAN 15.35 K/mm3 (1.96-9.15); SEG NEUTROPHILS PERCENT MAN 71 % (41-73); TOTAL CELLS COUNTED 100
--- NOTE | 2024-09-08 06:46 | NUR ---
PT LYING IN BED, IN MILD TO MODERATE DISTRESS. VSS BUT SUBJECTIVE INCREASED S0B OVER LAST 12 HOURS WITH MOST SEVERE SYMPTOMS BEGINNING AT 0200. LUNGS ARE CLEAR WITH SOME EXPIRATORY WHEEZING ON LEFT. SINUS RHYTHM WITH STABLE BP. 100% ON RA. MULITPLE SOFT/BROWN STOOLS DURING SHIFT. NS STOPPED BUT DOCTOR HAS NOT BEEN CALLED YET. PT HAD 200 OF KNOWN URINE OUT TOWARDS BEGINNING OF SHIFT BUT KNOWN SINCE. PT IS ASKING FOR PAIN MEDICATION FOR PAIN IN SWOLLEN FEET AND HANDS. HE SAID IT IS KEEPING HIM FROM SLEEPING WELL. PT LEFT WITH CALL LIGHT NEARBY. REPORT GIVEN TO ONCJÚNIOR DAY RN.
[2024-09-08] MEDS ORDERED: Midodrine 5 MG Tab PO SCH (08:00)
[2024-09-08 09:04] LABS: Bilirubin, Direct 3.7 mg/dL (0.0-0.3); Bilirubin, Indirect 1.3 mg/dL (0.1-0.7)
[2024-09-08] MEDS ORDERED: Dextrose 5% 1,000 ML IV SCH (09:20)
[2024-09-08] MEDS ORDERED: Sodium Bicarb 8.4% Inj 150 MEQ in Dextrose 5% 1,000 ML IV SCH (09:30)
[2024-09-08] MEDS ORDERED: Albumin Human 50 ML IV SCH (09:30)
[2024-09-08] MEDS ORDERED: Bumetanide 0.25 MG/ML 10ML Vial IV SCH (09:30)
[2024-09-08 10:19] LABS: Base Excess Venous -16.2 mmol/L; Bicarbonate Venous 13.3 mmol/L (24.0-30.0); PCO2 Venous 19.5 mmHg (38-42); pH Blood Venous 7.32 (7.34-7.37)
--- NOTE | 2024-09-08 10:30 | NUR ---
Spiritual Care Visit. Pt. is resting when this international editorial producer vists with Pts. mom at bedside. Mom welcomes my visit, but becomes tearful when she talks about the Pt. and his drug use. Listen with empathy and a calming presence. When I gowned up and jorge tot vist with the Pt. at bedside, he verbalized that he wanted to go home and that someone had told him that he could and that he could come back to get his antibiotics. This international editorial producer sought to normalize the Pt. experience and verbalized that we want to make sure that he doesn't have to come back to the hospital. Based on the mother's life history, the Pt. displayed evidence of a being a man of skyler. The international editorial producer requested to pray with the Pt. Pt. agreed. Prayed with Pt. Pts. mother verbalized gratitude for the spiritual care visit.
[2024-09-08] MEDS ORDERED: Octreotide Acetate 50 MCG in NS 50 ML IV SCH (13:00)
[2024-09-08] MEDS ORDERED: Rivaroxaban 10 MG Tab PO SCH (18:00)
--- NOTE | 2024-09-08 18:05 | NUR ---
SUMMARY PT A/O X4. FLAT AFFECT. POOR APPETITE. NEEDS ENCOURAGEMENT TO GET OOB AND MOVE AROUND. PT FINALLY AGREED TO SHOWER THIS EVENING AND SITTING UP IN RECLINER AFTERWARDS. DR. SHERMAN IN TO SEE PT. STARTED ON [address] SANCHEZ HAS BEEN IN CONTACT WITH CARDIOLOGY ABOUT GETTING ANIKA DONE. PT HAS PURPLE DISCOLORATION/DUSKY APPEARANCE TO BLE'S AND HANDS. FACE IS FLUSHED/DUSKY. USES CALL LIGHT APPROPRIATELY. NO SIGN OF DISTRESS.
[2024-09-09] VITALS (48 sets, daily range): BP systolic 68–126; BP diastolic 37–104
[2024-09-09 04:30] LABS: BASOPHILS ABSOLUTE AUTO 0.06 K/mm3 (0.00-0.23); BASOPHILS PERCENT AUTO 0 % (0-2); EOSINOPHILS ABSOLUTE AUTO 0.34 K/mm3 (0.00-0.68); EOSINOPHILS PERCENT AUTO 2 % (0-6); Hematocrit 30.9 % (37.0-53.0); Hemoglobin 10.1 g/dL (13.5-17.5); IMMATURE GRAN ABSOLUTE AUTO 0.21 K/mm3 (0.00-0.10); IMMATURE GRAN PERCENT AUTO 1 % (0-1); LYMPHOCYTES ABSOLUTE AUTO 1.51 K/mm3 (0.84-5.20); LYMPHOCYTES PERCENT AUTO 9 % (21-46); MONOCYTES ABSOLUTE AUTO 0.92 K/mm3 (0.16-1.47); MONOCYTES PERCENT AUTO 6 % (4-13); Mean Corpuscular HGB 24.1 pg (26.0-34.0); Mean Corpuscular HGB Conc 32.7 g/dL (31.5-36.5); Mean Corpuscular Volume 74 fL (80-100); NEUTROPHILS PERCENT AUTO 82 % (41-73); NRBC ABSOLUTE 0.14 K/mm3 (0.00-0.02); NRBC Auto 0.8 /100 WBC (0.0-0.2); Platelet Count 197 K/mm3 (150-400); RDW Coefficient Variation 21.8 % (11.7-14.2); RDW Standard Deviation 54.4 fL (35.1-46.3); Red Blood Cell Count 4.19 M/mm3 (4.30-5.90); White Blood Cell Count 16.64 K/mm3 (4.00-11.30)
[2024-09-09 05:11] LABS: Magnesium, Blood 2.2 mg/dL (1.6-2.4)
[2024-09-09 05:12] LABS: Albumin, Blood 1.9 g/dL (3.4-5.0); Albumin/Globulin Ratio 0.5 (0.8-1.8); Bilirubin, Total 4.1 mg/dL (0.1-1.0); Creatinine, Blood 2.3 mg/dL (0.60-1.20); Globulin, Blood 3.8 g/dL (2.2-4.0); Thyroid Stimulating Hormone 1.06 uIU/mL (0.360-4.800); Total Protein, Blood 5.7 g/dL (6.4-8.2); Uric Acid, Blood 9.9 mg/dL (3.5-7.2)
--- NOTE | 2024-09-09 06:56 | NUR ---
PT TRANSFERRED TO ROOM PCU 10 FROM ICU. PT ALERT AND ORIENTED, DENIES PAIN AT THIS TIME. PT ORIENTED TO ROOM, CALL LIGHT, ETC. NO S/S OF DISTRESS NOTED
--- NOTE | 2024-09-09 08:56 | NUR ---
SHIFT SUMMARY AND PT TRANSFER TO PCU AT TIME OF TRANSFER TO PCU, 629, FOLLOWING GIVING REPORT TO PIERCING SPECIALIST, PT WAS ALERT AND ORIENTED AND MUMBLING SOFTLY, WHICH IS HIS STANDARD SINCE ADMISSION. PT WANTS PEPSI OR STARRY BUT IS TOLD THAT DUE TO POTENTIAL FOR ANIKA TODAY, HE CANNOT HAVE ANYTHING TO EAT OR DRINK UNTIL A ANESTHESIA REQUIRING PROCEDURE IS CONFIRMED OR RULED OUT. PT SEEMS LESS WEAK TODAY THAN YESTERDAY AND IS HANDLING MOVEMENT AND TRANSFER TO WHEELCHAIR WITH MUCH LESS EXERTIONAL DYSPNEA. HE SINUS TACH AND BPS CONTINUE TO BE SOFT. CARDIOLOGY AND NEPHROLOGY ARE AWARE OF THIS. CRITICAL CARE CONSULT HAS SIGNED OFF ON PT, WHO IS 98 - 100 % ON RA. SMALL LIQUID BM DURING SHIFT. 24 HOUR URINE COLLECTION CONTAINER WILL FINISH AT NOON ON 09/09. IT WAS BROUGHT OVER WITH PT AND HAS BEEN ON ICE THE ENTIRE SHIFT. I EMPTIED 550ML OF DARK YELLOW URINE INTO CONTAINER. R PIV IS PAINFUL TO FLUSH AND NEEDS TO BE REMOVED. LEFT PICC IS A 5CM AND DRAWS AND FLUSHES WELL. ALL OF PT'S PERSONAL BELONGINGS, INCLUDING PHONE AND OIL AND GAS PRINCIPAL WHERE TRANSFERRED TO PCU ROOM 10 ALONG WITH PT.
[2024-09-09] MEDS ORDERED: Bumetanide 0.25 MG/ML 10ML Vial IV SCH (09:00)
[2024-09-09] MEDS ORDERED: Vancomycin HCL 1,000 MG in NS 250 ML IV ONE (10:35)
[2024-09-09 11:31] LABS: Vancomycin, Random 17.1 ug/mL
[2024-09-09] MEDS ORDERED: Vancomycin HCL 750 MG in NS 250 ML IV SCH (12:00)
[2024-09-09 13:16] LABS: Protein, Urine Quantitative 19.4 mg/dL (0.0-11.9)
--- NOTE | 2024-09-09 14:16 | NUR ---
TRANSFER: PT TRANSFERRED TO ICU 8 DUE TO HYPOTENSION. REPORT GIVEN TO BON SCHERER. ALL BELONGINGS WITH PT. FAMILY NOTIFIED OF TRANSFER.
[2024-09-10] VITALS (50 sets, daily range): BP systolic 81–121; BP diastolic 53–83
[2024-09-10 04:15] LABS: BASOPHILS ABSOLUTE AUTO 0.07 K/mm3 (0.00-0.23); BASOPHILS PERCENT AUTO 1 % (0-2); EOSINOPHILS PERCENT AUTO 1 % (0-6); Hematocrit 30.4 % (37.0-53.0); IMMATURE GRAN ABSOLUTE AUTO 0.21 K/mm3 (0.00-0.10); IMMATURE GRAN PERCENT AUTO 1 % (0-1); LYMPHOCYTES ABSOLUTE AUTO 0.95 K/mm3 (0.84-5.20); LYMPHOCYTES PERCENT AUTO 6 % (21-46); MONOCYTES ABSOLUTE AUTO 0.68 K/mm3 (0.16-1.47); MONOCYTES PERCENT AUTO 5 % (4-13); Mean Corpuscular HGB 23.9 pg (26.0-34.0); Mean Corpuscular HGB Conc 32.9 g/dL (31.5-36.5); Mean Corpuscular Volume 73 fL (80-100); NEUTROPHILS ABSOLUTE AUTO 13.17 K/mm3 (1.96-9.15); NEUTROPHILS PERCENT AUTO 87 % (41-73); NRBC ABSOLUTE 0.18 K/mm3 (0.00-0.02); NRBC Auto 1.2 /100 WBC (0.0-0.2); RDW Coefficient Variation 22.5 % (11.7-14.2); RDW Standard Deviation 54.4 fL (35.1-46.3); Red Blood Cell Count 4.19 M/mm3 (4.30-5.90); White Blood Cell Count 15.18 K/mm3 (4.00-11.30)
[2024-09-10 04:19] LABS: Magnesium, Blood 2.2 mg/dL (1.6-2.4)
[2024-09-10 04:20] LABS: Albumin, Blood 2.2 g/dL (3.4-5.0); Albumin/Globulin Ratio 0.5 (0.8-1.8); Bilirubin, Total 4.5 mg/dL (0.1-1.0); Bun/Creatinine Ratio 26.6 (12.0-20.0); Calcium, Blood 7.9 mg/dL (8.5-10.1); Creatinine, Blood 2.22 mg/dL (0.60-1.20); Globulin, Blood 4.2 g/dL (2.2-4.0); Phosphorus, Blood 3.3 mg/dL (2.5-4.9); Potassium, Blood 4.6 mmol/L (3.5-5.5); Total Protein, Blood 6.4 g/dL (6.4-8.2)
[2024-09-10 04:38] LABS: BAND PERCENT MAN 3 % (0-8); BASOPHILS PERCENT MAN 0 % (0-2); EOSINOPHILS PERCENT MAN 0 % (0-6); LYMPHOCYTES PERCENT MAN 4 % (21-46); MONOCYTES ABSOLUTE MAN 0.91 K/mm3 (0.16-1.47); MONOCYTES PERCENT MAN 6 % (4-13); MYELOCYTE ABSOLUTE MAN 0.15 K/mm3 (0.00-0.00); MYELOCYTE PERCENT MAN 1 % (0-0); NEUTROPHILS ABSOLUTE MAN 13.51 K/mm3 (1.96-9.15); SEG NEUTROPHILS PERCENT MAN 86 % (41-73); TOTAL CELLS COUNTED 100
[2024-09-10 04:39] LABS: Platelet Count 199 K/mm3 (150-400)
[2024-09-10] MEDS ORDERED: NS 1,000 ML IV SCH (04:40)
--- NOTE | 2024-09-10 05:22 | NUR ---
SHIFT SUMMARY PATIENT ASKED FOR A SHOWER AT BEGINING OF SHIFT. NURSE TOLD HIM THAT HIS B/P WAS TOO LOW AND OFFEREDA BED BATH. PATIENT WAS GIVEN BED BATH AND LINENS WERE CHANGED. PATIENT SLEPT OFF AND ON THORUGH OUT SHIFT. ASKED FOR ICE CHIPS AND DIET PEPSI X2. PATIENT USES BEDSIDE URINAL AND WILL CALL FOR HELP WHEN NEEDED. PATIENT ASKE FOR PULSE OX TO BE MOVED FROM FINGER TO TEMPORAL PROBE TO BE USED INSTEAD. IMER HAS SWELLING OF HANDS AND STATES THAT HIS HANDS AND FEET ARE VERY SORE. NO WOUNDS ON HANDS OR FEET OBSERVED BY NURSE. PATEINT HAD SMALL LOOSE BROWN BM X1 AND LINEN WAS CHANGED. PATIENT A&O X4, HAS A PICC LINE IN UPPER LEFT ARM. NORMAL SALINE RUNNING @75ML/ HOUR FOR ONE BAG AND LEVO RUNNING 7 MCG. CALL LIGHT WITHIN REACH.
[2024-09-10 08:32] LABS: HIV 1,2 COMBO ANTIGEN/ANTIBODY Negative (Negative)
[2024-09-10] MEDS ORDERED: Sodium Bicarb 8.4% Inj 150 MEQ in Dextrose 5% 1,000 ML IV SCH (09:00)
[2024-09-10 09:44] LABS: Base Excess Venous 1.9 mmol/L; Bicarbonate Venous 25.7 mmol/L (24.0-30.0); PCO2 Venous 40.3 mmHg (38-42); pH Blood Venous 7.42 (7.34-7.37)
--- NOTE | 2024-09-10 11:38 | NUR ---
SHIFT SUMMARY PATIENT ALERT AND ORIENTED X4. CALLS APPROPRIATELY AND ABLE TO MAKE HIS NEEDS KNOWN. SOME MUSCLE WEAKNESS TO BLE AND FINE MOTOR MOVEMENT OF BILATERALL HANDS. OTHERWISE HE MOVES HIS EXTREMITIES WELL. ON CONT TELE MONITORING SINUR RHYTHM HR 80-90S. +MURMUR ON LEVO AT 7MCG/MIN SBP 100S, DPB 70S MAINTAINING MAP 70-80S. LUNGS ARE CLEAR/DIM. +COUGH INTERMITTENT. 2 LPM VIA NC MAINTAINING O2 SAT ABOVE 95%. SCLERAL ICTERUS AND PERIORBITAL YELLOWING WITH SOME TRACE FACIAL EDEMA BUE +2 EDEMA HEMOSIRDIN STAINING TO BLE. PAST WOUND, PRESENT PRIOR TO ADMISSION TO [facility], NO DRAINAGE, NO VISIBLE REDENSS OR SWELLING. ABODMEN IS MILDLY DISTENDED, NORMOACTIVE BOWEL TONES. SOFT TO PALPATION. LAST BM LAST NIGHT SMALL SOFT BROWN USING BEDSIDE URINAL, URINE IS YELLOW. MOTHER AT BEDSIDE THIS AM. PLAN TO TRANSFER TO [facility] VIA [facility] TRANSPORT TODAY. REPORT GIVEN TO BON SCHERER ICU AT [facility].
[2024-09-10 13:15] LABS: HEPATITIS C AB CIA INTERP Negative (Negative); HEPATITIS C ANTIBODY CIA INDEX 0.04 IV
== END 2024-09-10 12:33 | disposition short-term general hospital (02) | DRG 871 ==
LOC: ER 11:26 → ICUE 11:27 → PCU 09-09 05:57 → ICUE 09-09 14:01
PROVIDERS: Emergency Medicine; Internal Medicine; Internal Medicine Critical Care Medicine; Internal Medicine Nephrology; Student in an Organized Health Care Education/Training Program; ADMIT Family Medicine
PROC: 4A033R1 Measurement of Arterial Saturation, Peripheral, Percutaneous Approach (ICD-10-PCS; principal; 2024-09-03)
PROC: 3E03329 Introduction of Other Anti-infective into Peripheral Vein, Percutaneous Approach (ICD-10-PCS; 2024-09-03)
PROC: 3E033XZ Introduction of Vasopressor into Peripheral Vein, Percutaneous Approach (ICD-10-PCS; 2024-09-04)
PROC: 02HV33Z Insertion of Infusion Device into Superior Vena Cava, Percutaneous Approach (ICD-10-PCS; 2024-09-04)
PROC: 30233J1 Transfusion of Nonautologous Serum Albumin into Peripheral Vein, Percutaneous Approach (ICD-10-PCS; 2024-09-08)
DX: A41.02 Sepsis due to Methicillin resistant Staphylococcus aureus (principal); I26.09 Other pulmonary embolism with acute cor pulmonale; J96.01 Acute respiratory failure with hypoxia; R65.21 Severe sepsis with septic shock; E87.1 Hypo-osmolality and hyponatremia; N17.9 Acute kidney failure, unspecified; E87.21 Acute metabolic acidosis; D68.9 Coagulation defect, unspecified; I47.10 Supraventricular tachycardia, unspecified; I50.9 Heart failure, unspecified; I36.1 Nonrheumatic tricuspid (valve) insufficiency; E87.5 Hyperkalemia; I73.9 Peripheral vascular disease, unspecified; N18.9 Chronic kidney disease, unspecified; F15.10 Other stimulant abuse, uncomplicated; F12.10 Cannabis abuse, uncomplicated; F11.10 Opioid abuse, uncomplicated; K72.90 Hepatic failure, unspecified without coma; Z28.21 Immunization not carried out because of patient refusal; I51.3 Intracardiac thrombosis, not elsewhere classified; E80.6 Other disorders of bilirubin metabolism; D63.1 Anemia in chronic kidney disease; E88.09 Other disorders of plasma-protein metabolism, not elsewhere classified; E87.70 Fluid overload, unspecified; F17.210 Nicotine dependence, cigarettes, uncomplicated; Z88.2 Allergy status to sulfonamides; Z88.8 Allergy status to other drugs, medicaments and biological substances; Z79.01 Long term (current) use of anticoagulants; Z79.899 Other long term (current) drug therapy
CPT/HCPCS: 36415; 36569; 36600; 71045; 71250; 74176; 80048; 80053; 80162; 80202; 81001; 82247; 82248; 82533; 82550; 82570; 82803; 82947; 83605; 83735; 83880; 83930; 84100; 84145; 84156; 84300; 84443; 84484; 84550; 85025; 85027; 85520; 85610; 85730; 86803; 87040; 87077; 87086; 87147; 87186; 87389; 87507; 93005; 93010; 93306; 93970; 94762; 96365; 96366; 97165; 97535; 99285-25; A9270; C1751; J0282; J0295; J0612; J1815; J2354; J2543; J3370; J3475; J7030; J7040; J7050; J7060; J7070; J7799; P9047